=== PATIENT | male | born 1985 | race Caucasian/White ===

== ENCOUNTER 2016-07-23 23:45 | Emergency (ER) | payer SELFPAY ==
[~2016-07-23] VITALS: Ht 175.3 cm; Wt 75.5 kg
[~2016-07-23 23:45] MED LIST: no daily meds
--- OUTSIDE RECORDS SUMMARY | 2016-07-23 23:49 | XMS REPORT ---
Author Author Kayla Multani [facility] eClinicalWorks Address Unknown Phone Unavailable Care Team Providers Care Circular Ripsaw Operator Name Role Phone Kayla Multani CP Unavailable Allergies, Adverse Reactions, Alerts Substance Reaction Event Type N.K.D.A. Info Not Available Non Drug Allergy Problems Problem Type Condition Code Onset Dates Condition Status Assessment UTI 599.0 Active Assessment Abdominal pain, other specified site 789.09 Active Medications Medication Code System Code Instructions Start Date End Date Status Dosage Ibuprofen [facility] [address]-33 200 MG Orally every 6 hrs 4 tablet as needed Ciprofloxacin HCl [facility] [address]-13 500 MG Orally every 12 hrs July 04, 2014 July 14, [address] [facility] [address]-95 100 MG Orally Three times a day. Will turn urine red/orange July 04, 2014 July 06, 2014 1 tablet after meals Procedures Procedure Coding System Code Date OFFICE VISIT, ENVIRONMENTAL REMEDIATION SPECIALIST-LOW COMPLEXITY (20 MIN.) CPT-4 11666 July 04, 2014 URINE CULTURE CPT-4 15501 July 04, 2014 URINALYSIS, IN HOUSE CPT-4 83540 July 04, 2014 Vital Signs Date/Time: July 04, 2014 Height 67 in Weight 157.5 lbs Temperature 97.9 F Blood Pressure Diastolic 64 mm Hg Blood Pressure Systolic 120 mm Hg Cardiac Monitoring Heart Rate 72 /min BMI 24.67 Index Respiratory Rate 16 /min Results No Known Results Summary Purpose eClinicalWorks Submission
--- OUTSIDE RECORDS SUMMARY | 2016-07-23 23:49 | XMS REPORT | Continuity of Care Document ---
Author Author [facility] Organization [facility] Address Unknown Phone Unavailable Support Name Relationship Address Phone LAUREN VIEIRA MD Caregiver [address] [place] [address] [place] [phone] SINA TORRES Next Of Kin [address] [place] [address] Insurance Providers Payer Name Policy Number Subscriber Name Relationship Self Pay Edu Torres 18 Self Problems Medical Problems Problem Onset Date Status Patient left without being seen Unknown Active Medications Medication Dose Route Sig Days/Qty Instructions Order Date Discontinued Date Status [no daily meds] 07/03/14 Active Social History Social History Problem Response Recorded Date/Time Chewing Tobacco Status No 07/03/2014 7:50pm Hx Substance Use No 07/03/2014 7:50pm Hx Alcohol Use Y occasionally 07/03/2014 7:50pm Query Response Start Date Stop Date Smoking Status Current every day smoker Hospital Discharge Instructions No hospital discharge instructions. Plan of Care No plan of care. Functional Status Query Response Date Recorded Physical Hygiene Self July 03, 2014 7:50pm Disabilities None July 03, 2014 7:50pm Devices Used None July 03, 2014 7:50pm Dressing Self July 03, 2014 7:50pm Ambulation Self July 03, 2014 7:50pm Diet Self July 03, 2014 7:50pm Mental Status Alert Oriented July 03, 2014 7:50pm Disabilities None July 03, 2014 7:50pm Devices Used None July 03, 2014 7:50pm Physical Hygiene Self July 03, 2014 7:50pm Dressing Self July 03, 2014 7:50pm Ambulation Self July 03, 2014 7:50pm Diet Self July 03, 2014 7:50pm Allergies, Adverse Reactions, Alerts Allergen Type Severity Reaction Status Last Updated No Known Drug Allergies Allergy Unknown Active 07/03/14 Immunizations Name Given Type Hx Influenza Vaccination No Historical Hx Pneumococcal Vaccination No Historical Hx Tetanus, Diptheria, Pertussis Y 2013 Historical Hx Influenza Vaccination No Historical Hx Tetanus, Diptheria, Pertussis Y 2013 Historical Vital Signs Acute Vital Signs Vital Response Date/Time Temperature (Fahrenheit) 97.9 deg F (96.8 - 99.1) Temperature (Calculated Celsius) 36.29125 degrees C (36.0 - 37.3) Pulse Rate (adult) 79 bpm (60 - 100) Respiratory Rate 16 breaths/min (10 - 20) O2 Sat by Pulse Oximetry 98 % (90 - 100) Blood Pressure 138/81 mm Hg Height 5 ft 9 in Weight 156 lb Body Mass Index 23.0 kg/m^2 Results Test Source Date Result Interp. Ref. Range Comments Group A Streptococcus Screen November 28, 2008 9:21pm Negative - Strep culture confirmation to follow Phenytoin (Dilantin) Level November 30, 2008 8:13pm 3.3 UG/ML L 10-20 Lab Scanned Report December 01, 2008 8:40am LAB TEST FORM REQUEST [id number] - Group A Streptococcus Culture Throat November 28, 2008 9:44pm Procedures No known history of procedures. Encounters Encounter Location Date/Time Departed Emergency Room [facility] 07/03/14 7:31pm Recent Diagnosis
--- OUTSIDE RECORDS SUMMARY | 2016-07-23 23:49 | XMS REPORT | Continuity of Care Document ---
Author Author [facility] Organization [facility] Address Unknown Phone Unavailable Allergies Medications Problems Procedures Results Encounters ACCT No. Visit Date/Time Discharge Status Pt. Type Provider Facility Loc./Unit Complaint [id number] 06/22/2013 17:23:00 06/22/2013 23 :59:59 CLS Outpatient [id number] 05/31/2013 12:41:00 05/31/2013 23 :59:59 CLS Outpatient
--- OUTSIDE RECORDS SUMMARY | 2016-07-23 23:49 | XMS REPORT ---
Author Author Kayla Multani [facility] eClinicalWorks Address Unknown Phone Unavailable Care Team Providers Care Supervisor Accounts Receivable Name Role Phone Kayla Multani CP Unavailable Allergies, Adverse Reactions, Alerts Substance Reaction Event Type N.K.D.A. Info Not Available Non Drug Allergy Problems Problem Type Condition Code Onset Dates Condition Status Assessment UTI 599.0 Active Medications No Known Medications Procedures Procedure Coding System Code Date OFFICE VISIT, EST-LOW COMPLEXITY (15 MIN.) CPT-4 96614 July 20, 2014 Vital Signs Date/Time: July 20, 2014 Height 67 in Weight 152.8 lbs Temperature 98.1 F Blood Pressure Diastolic 80 mm Hg Blood Pressure Systolic 124 mm Hg Cardiac Monitoring Heart Rate 74 /min BMI 23.93 Index Respiratory Rate 16 /min Results No Known Results Summary Purpose eClinicalWorks Submission
--- OUTSIDE RECORDS SUMMARY | 2016-07-23 23:49 | XMS REPORT | Continuity of Care Document ---
Author Author Endy HUNG, [facility] Address [address] [place] [address] [place] [address] Phone Care Team Providers Care Payable Representative Name Role Phone Gilberto Schumacher PP Unavailable Payers Payer name Insurance type Covered democrat ID Authorization(s) Unknown Problems Condition Effective Dates (start - stop) Clinical Status OME (otitis media with effusion) - *Chronic Eustachian tube dysfunction - *Chronic Routine Medical Exam - *Routine Influenza Vaccine - NEED FOR PROPHYLACTIC VACCINATION WITH COMBINED ARARHKGVOE-CDHHPTA-[id number] ( DTP) (DTAP) VACCINE - Cellulitis and abscess of hand, except fingers and thumb - * Acute Abscess of finger of right hand - *Acute Family History Family Member Diagnosis Age At Onset Status Paternal grandmother (Unknown) Cancer - breast Yes great aunt (Unknown) Cancer - breast Yes Social History Social History Element Description Quantity alcohol Allergies, Adverse Reactions, Alerts Substance Reaction Severity Status Unknown Medications Medication Instructions Dosage Effective Dates (start - stop) Status ibuprofen 200 mg tablet take 2 Tablet (400MG) by oral route every 6 hours as needed with food as needed 400 MG - Active amoxicillin 875 mg tablet take 1 tablet (875MG) by oral route every 12 hours 875 MG - No Longer Active Flonase 50 mcg/actuation nasal spray,suspension inhale 1 spray (50MCG) by intranasal route 2 times every day in each nostril 50 MCG - No Longer Active clindamycin 300 mg capsule take 1 capsule (300MG) by oral route every 6 hours 300 MG - Active [place] 5 mg-325 mg tablet take 1 tablet by oral route every 6 hours as needed for pain 0 - Active Immunizations Vaccine Date Status Comments Fluzone Adult QIV completed Tdap (Boostrix r) completed Results Test Name Date and Time Measure Units Reference Range Abnormal Flag Comments Unknown Vital Signs Date / Time: Height Weight Pulse Rate Blood Pressure Temperature /12:48:00 68.00 in 151.00 lbs 84 /min 120/68 mm[Hg] 97.4 F Procedures Procedure Date FLU VAC NO PRSV 4 EDENILSON 3 YRS+ ADMINISTRATION OF FLU SHOT TDAP VACCINE >7 IM IMMUNIZ,ADMIN,SINGLE Encounters Encounter Location Date Patient Visit [facility] Patient Visit [facility] Patient Visit [facility] Advance Directives Directive Effective Date Unknown
[2016-07-24 00:15] VITALS: Ht 175.3 cm; Wt 75.5 kg
--- NOTE | 2016-07-24 00:29 | NUR ---
PROVIDER DR LAO IN ROOM W/ PT.
[2016-07-24] MEDS ORDERED: TETRACAINE 0.5% EYE DROPS 4ml BOTTLE LEFT EYE ONE (00:30)
[2016-07-24] MEDS ORDERED: FLUORESCEIN SODIUM 1 MG/STRIP LEFT EYE ONE (00:30)
--- NOTE | 2016-07-24 00:38 | ERPDOC ---
Departure Disposition Decision Date: July 24, 2016 Disposition Decision Time: 00:38 Disposition: 01 DISCHARGED HOME, SELF-CARE Impression Impression Impression: Primary Impression: Bacterial conjunctivitis Additional Impression: Viral bronchitis Severity: Moderate Condition: Improved Seen By: Physician only Patient Instructions: Acute Bronchitis (ED), Conjunctivitis (ED) Problems/Meds/Labs Reviewed?: Yes Medications reviewed and manag: Yes Additional Instructions: Polytrim, one drop every 4-6 hours while awake 1 week Albuterol inhaler, use with spacer, 4 puffs 4 times daily as needed for cough or wheezing Follow up care ordered?: Yes Mental Status: Alert HPI - EE General General Chief Complaint: Eye Problems Stated Complaint: LEFT EYE SWELLING/COUGH Time Seen by Provider: 00:25 Source: patient Exam Limitations: no limitations HPI - EENT General Initial Comments Patient presents with 2 day history of left thigh pain, diffuse aching sensation in the eye, with a foreign body sensation, as well as Prelone and discharged from the eye for the past 24 hours. Also notes that his had a harsh wet reactive cough for the past 4 days. Occurred At: home Onset/Timing: Rapid Severity: moderate Location: eye (L) Associated Symptoms: cough, nasal congestion/drainage, DENIES: change in hearing, drooling, ear drainage, facial pain/swelling, fever, malaise, poor fluid intake, poor solids intake, sinus infection, sore throat, tooth pain, voice change Allergies: Coded Allergies: No Known Drug Allergies (Unverified Allergy, Unknown, 10/06/14) Past History Past Medical History Neurological: seizures Musculoskeletal: neck pain Surgical History Denies Surgeries Vaccines Hx Influenza Vaccination: No Hx Pneumococcal Vaccination: No Hx Tetanus, Diptheria, Pertuss: Yes (2013) Review of Systems Constitutional Constitutional: DENIES: appetite decrease, appetite increase, chills, dizziness , fever, weakness Eyes General: exudate, foreign body sensation, pain, photophobia Lids/Accessories: erythema, swelling ENMT Ears: DENIES: pain Hearing: DENIES: hearing loss, tinnitus Balance: DENIES: vertigo Sinuses: congestion, rhinorrhea Mouth/Throat: DENIES: change in swallowing, change in voice, hoarsness, painful swallowing, sore throat Cardiovascular Cardiac: DENIES: chest pain, dyspnea on exertion Rhythm/Rate: DENIES: irregular beat, palpitations, tachycardia Vascular: DENIES: pedal edema Pulmonary Respiratory: cough GI Upper Abdomen: DENIES: dysphagia, heartburn/indigestion, nausea, pain, vomiting Lower Abdomen: DENIES: blood in stool, constipation, diarrhea, pain General: DENIES: burning, dysuria, frequency, pain, urgency Musculoskeletal General: DENIES: cramps, joint pain, joint swelling, pain, weakness Integumentary Skin: DENIES: rash, sores Neurological General: DENIES: headache, numbness, tingling, vertigo, weakness Psychiatric Psychiatric: DENIES: anxiety, depression, nervousness Physical Exam General General Nourishment: well nourished, well developed, appears stated age General Body Habitus: well groomed Vitals and Pain First Documented Vital Signs Date Time Temp Pulse Resp B/P Pulse Ox O2 Delivery O2 Flow Rate FiO2 5/5/17 00:15 97.9 63 20 157/101 98 Room Air Weight: Kilograms: 75.500 Height (feet): 5 Height (inches): 9.00 Triage Pain Scale: RN VS reviewed by Provider: Yes Normal Exams: Head: Normocephalic w/o trauma Eyes (brief) Eyes Brief: found: EOMI, PERRL, not found: foreign body, papilledema, scleral icterus, trauma Comments Patient has significant scleral inflammation with purulent discharge. Examination of the eye with floor seen shows no significant dye uptake, no foreign bodies are found, no abrasions or scratches or ulcerations. ENMT (brief) ENMT Brief: FOUND: TM clear, TM good light reflex, ear canals clear, mucosa moist, nasal erythema, nasal exudate, nasal swelling, normal dentition, NOT FOUND: pharnyx erythema, tonsillar deviation Neck (brief) Neck: FOUND: trachea midline, NOT FOUND: JVD, adenopathy, spasm, tenderness, thyromegaly Respiratory (brief) Respiratory: FOUND: equal bilaterally, symmetrical, wheezes, NOT FOUND: clear all galindo, rales (course wheezes bilaterally with a strong reactive cough), tenderness Cardiovascular (brief) Cardiac: FOUND: regular rate, regular rhythm, NOT FOUND: click, gallop, murmur , pedal edema Capillary Refill: <2 sec Pulses: all distal extremities, equal, strong Abdomen (brief) Abdominal Brief: FOUND: bowel normo active x4, soft, NOT FOUND: distended, hepatosplenomegaly, tender Lymphatic (brief) Lymphatic Brief: NOT FOUND: adenopathy, lymphedema Musculoskeletal (brief) Musculoskeletal Brief: NOT FOUND: deformity, loss of motion, spasm, tenderness Integumentary (brief) Integumentary Brief: FOUND: dry, pink, warm Neurologic (brief) Neurological Brief: FOUND: CN w/o gross def to obs, motor-no gross deficits, sensory-no gross deficits Psychiatric (brief) Psychiatric Brief: FOUND: alert, attentive, normal affect, oriented Progress Results/Orders Orders Procedure Category Date Status Time Tetracaine 0.5% Eye PHA 07/24/16 Complete Drops (Tetracaine 0. 00:30 Fluorescein Sodium PHA 07/24/16 Complete (Ful-Rosa Isela) 00:30 Prednisone 20mg PHA 07/24/16 In Process (Prepack) (Prednisone 00:45 Inhaler Assist Device PHA 07/24/16 In Process - Spacer (Opticham 00:45 Polymyxin B/Tmp Eye PHA 07/24/16 In Process Drops (Polytrim Eye 00:45 Albuterol (Ventolin PHA 07/24/16 In Process Hfa) 00:45 Medications Current ED Medications Tetracaine HCl (Tetracaine 0.5% Eye Drops) 1 drop O ONCE LEFT EYE ; Start at 00:30; Stop 07/24/16 at 00:31; Status DC Fluorescein Sodium (Ful-Rosa Isela) 1 mg O ONCE LEFT EYE ; Start 07/24/16 at 00:30; Stop 07/24/16 at 00:31; Status DC Progress Progress Patient appears to have bacterial conjunctivitis, started on Polytrim drops Given albuterol metered-dose inhaler with spacer, and 60 mg prednisone burst for reactive cough with bronchitis EMILI LAO MD July 24, 2016 00:38
[2016-07-24] MEDS ORDERED: PredniSONE 20mg TAB #3 (PrePack) SENT HOME ONE (00:45)
[2016-07-24] MEDS ORDERED: INHALER ASSIST DEVICE (Optichamber) MC ONE (00:45)
[2016-07-24] MEDS ORDERED: ALBUTEROL HFA INHALER 8gm ORAL INH ONE (00:45)
[2016-07-24] MEDS ORDERED: POLYMYXIN B SULFATE/TRIMETHOPRIM EYE DROPS 10 ML BOTTLE LEFT EYE ONE (00:45)
--- NOTE | 2016-07-24 01:05 | NUR ---
PO MEDS PREDISONE GIVEN CHARTED W/ PT TOLERANCE.
--- NOTE | 2016-07-24 01:10 | NUR ---
EYE DROPS TETRACAINE AND POLYTRIM DROPS GIVEN CHARTED W/ PT TOLERANCE AND REST POLYTRIM AMT GIVEN TO PT DAILY ADMINSTATION.
[2016-07-24 01:20] VITALS: BP 127/59; PULSE 80; RESP 18; TEMP 97.8; O2SAT 95
--- NOTE | 2016-07-24 01:20 | NUR ---
DISCHARGE PT GIVEN INSTRUCTIONS FOR CONT CARE OF ACUTE BRONCHITIS AND CONJUNCTIVITIS. W/ POLY TRIM EYE DROPS. PT VERBALIZED UNDERSTANDING AND SIGNED FORM. PT LEFT ER AMBULATORY W/O ASSIST, ALERT, VS CHARTED IN NO ACUTE DISTRESS.
--- OUTSIDE RECORDS SUMMARY | 2016-07-24 01:57 | XMS REPORT | Continuity of Care Document ---
Author Author [facility] Organization [facility] Address Unknown Phone Unavailable Allergies Medications Problems Procedures Results Encounters ACCT No. Visit Date/Time Discharge Status Pt. Type Provider Facility Loc./Unit Complaint [id number] 06/22/2013 17:23:00 06/22/2013 23 :59:59 CLS Outpatient [id number] 05/31/2013 12:41:00 05/31/2013 23 :59:59 CLS Outpatient
--- OUTSIDE RECORDS SUMMARY | 2016-07-24 01:58 | XMS REPORT | Continuity of Care Document ---
Author Author [facility] Organization [facility] Address Unknown Phone Unavailable Support Name Relationship Address Phone LAUREN VIEIRA MD Caregiver [address] [place] [address] [place] [phone] SINA TORRES Next Of Kin [address] [place] [address] Insurance Providers Payer Name Policy Number Subscriber [...] F (96.8 - 99.1) Temperature (Calculated Celsius) [phone] degrees C (36.0 - 37.3) Pulse Rate [...] 01, 2008 8:40am LAB TEST FORM REQUEST [id number] - Group A Streptococcus Culture Throat November 28, 2008 9:44pm Procedures No known history of procedures. Encounters Encounter Location Date/Time Departed Emergency Room [facility] 07/03/14 7:31pm Recent Diagnosis
== END 2016-07-24 01:20 | disposition home or self-care (01) ==
LOC: ED 23:45
DX: H10.022 Other mucopurulent conjunctivitis, left eye (principal); J20.8 Acute bronchitis due to other specified organisms
CPT/HCPCS: 94664